=== PATIENT | male | born 1985 ===

== ENCOUNTER 2025-03-02 16:03 | Emergency (ER) | payer BC, MEDICAID ==
[~2025-03-02] VITALS: Ht 180.3 cm; Wt 71.9 kg
[2025-03-02 16:15] VITALS: BP 141/88; PULSE 78; RESP 16; TEMP 97.1; O2SAT 100
== END 2025-03-02 19:19 | disposition left against medical advice (07) ==
LOC: ER 16:05
DX: R06.02 Shortness of breath (principal); R53.1 Weakness
CPT/HCPCS: 99281